=== PATIENT | female | born 1965 ===

== ENCOUNTER → 2025-08-22 09:42 | Outpatient (REF) | payer OTHER, SELFPAY | LOC: HWRAD 09:42 | PROVIDERS: ATTENDING PHYSICIAN Urology; FAMILY PHYSICIAN Family Medicine | DX: R35.1 Nocturia (principal); N39.41 Urge incontinence; N95.8 Other specified menopausal and perimenopausal disorders | CPT/HCPCS: 76770; 76856 ==